=== PATIENT | female | born 1970 | race Caucasian/White ===

== ENCOUNTER 2016-11-17 17:13 | Emergency (ER) | payer OTHER ==
--- NOTE | 2016-11-17 17:33 | EDM.PDOC ---
ED HPI Trauma - General Chief Complaint: Lower Extremity Injury/Pain Stated Complaint: PAIN IN FOOT Time Seen by Provider: 11/17/16 17:28 Source: Reports: Patient History Limitations: Reports: No limitations - History of Present Illness INITIAL COMMENTS - FREE TEXT/NARRATIVE: HISTORY AND PHYSICAL: [46-year-old female. now presenting with left dorsum foot] pain History of Present Illness: [Pain has been present for the last 3 weeks has been gradually worsening] Review of Systems: As per history of present illness and below otherwise all systems reviewed and negative. Past medical history: As per history of present illness and as reviewed below otherwise noncontributory. Surgical history: As per history of present illness and as reviewed below otherwise noncontributory. Social history: No reported history of drug or alcohol abuse. Family history: As per history of present illness and as reviewed below otherwise noncontributory. Physical exam: Alert oriented female does not look to be in acute distress slight limp while she is walking in to the ED room HEENT: Atraumatic, normocehpalic, pupils reactive, negative for conjunctival pallor or scleral icterus, mucous membranes moist, throat clear, neck supple, nontender, trachea midline. Lungs: Clear to auscultation, breath sounds equal bilaterally, chest non tender. Heart: S1S2, regular, negative for clicks, rubs, or JVD. Extremities: Atraumatic, negative for cords or calf pain. Pedal pulses easily palpable good flexion increased pain with extension. Neurovascular unremarkable. Neuro: Awake, alert, oriented. Cranial nerves II through XII unremarkable. Cerebellum unremarkable. Motor and sensory unremarkable throughout. Exam nonfocal. Diagnostics: [X-ray left foot] Therapeutics: [] Impression: [Left Foot pain] Plan: [Discharged home Referred to Dr. El [phone] Please call for an appointment Definitive disposition and diagnosis as appropriate pending reevaluation and review of above. Occurred When: other (3 weeks) Occurred Where: home Method of Injury: unknown Severity: moderate Pain/Injury Location: Reports: lower extremity, left Consciousness: Reports: other (denies any injury) Allergies/ADRs: Allergies No Known Allergies Allergy (Verified 11/15/14 08:10) Home Medications: Ambulatory Orders Desvenlafaxine [Pristiq] 50 mg PO DAILY 11/15/14 [Confirmed 11/15/14] Dextroamphetamine/Amphetamine [Adderall] 30 mg PO DAILY 11/15/14 [Confirmed 09/27] Topiramate [Topamax] 200 mg PO BID 11/15/14 [Confirmed 11/15/14] Social & Family History - Tobacco Use Smoking Status *Q: Unknown Ever Smoked - Alcohol Use Days Per Week of Alcohol Use: 0 - Recreational Drug Use Recreational Drug Use: No Review of Systems - Review of Systems Review Of Systems: ROS reveals no pertinent complaints other than HPI. Trauma Exam - Physical Exam Exam: See Below (See dictation) Course - Vital Signs Last Recorded V/S: Last Vital Signs Temp 36.7 C 11/17/16 17:38 Pulse 79 11/17/16 17:38 Resp 18 11/17/16 17:38 BP 111/73 11/17/16 17:38 Pulse Ox 97 11/17/16 17:38 - Orders/Labs/Meds Orders: Active Orders 24 hr Category Date Time Status Foot 2V Lt [CR] Stat Exams 11/17/16 17:28 Taken Departure - Departure Time of Disposition: 18:13 Disposition: Home, Self-Care 01 Condition: good Clinical Impression: Left foot pain Referrals: PCP,Janet [Primary Care Provider] - Markos El DPM [Physician] - Forms: ED Department Discharge Additional Instructions: The following information is given to patients seen in the emergency department who are being discharged to home. This information is to outline your options for follow-up care. We provide all patients seen in our emergency department with a follow-up referral. The need for follow-up, as well as the timing and circumstances, are variable depending upon the specifics of your emergency department visit. If you don't have a primary care physician on staff, we will provide you with a referral. We always advise you to contact your personal physician following an emergency department visit to inform them of the circumstance of the visit and for follow-up with them and/or the need for any referrals to a consulting specialist. The emergency department will also refer you to a specialist when appropriate. This referral assures that you have the opportunity for followup care with a specialist. All of these measure are taken in an effort to provide you with optimal care, which includes your followup. Under all circumstances we always encourage you to contact your private physician who remains a resource for coordinating your care. When calling for followup care, please make the office aware that this follow-up is from your recent emergency room visit. If for any reason you are refused follow-up, please contact the [facility] emergency department at and asked to speak to the emergency department charge nurse. - My Orders Last 24 Hours: My Active Orders 11/17/16 17:28 Foot 2V Lt [CR] Stat - Assessment/Plan Last 24 Hours: My Active Orders 11/17/16 17:28 Foot 2V Lt [CR] Stat
[2016-11-17 18:39] VITALS: BP 131/60
--- NOTE | 2016-11-20 15:40 | CR ---
EXAM DATE: 11/17/16 PATIENT'S AGE: 46 Patient: RADHA KO Facility: [place], [place] Site . Site : [id number] Study: XRay Extremity foot [id number]/5/2017 5:46:14 PM Ordering Physician: Doctor Nieves Final Report: Indication: Pain. No injury. Technique: Left foot two views. Comparison: None. Findings: No evidence of acute fracture or dislocation. Accessory navicular. Degenerative changes of the midfoot. Dorsal and plantar calcaneal enthesopathy. Soft tissues as imaged are unremarkable. Impression: No acute osseous abnormality. Dictated by Ignacio Pratt MD @ 11/17/2016 6:01:53 PM Dictated by: Ignacio Pratt MD @ 11/17/2016 18:01:58 (Electronic Signature) Report Signed by Proxy. RAUL
== END 2016-11-17 18:35 | disposition home or self-care (01) ==
LOC: MW.ED 17:13
DX: M79.672 Pain in left foot (principal); Z79.899 Other long term (current) drug therapy
CPT/HCPCS: 73620-26-LT; 73620-LT; 99282; 99283